=== PATIENT | female | born 1995 | race Caucasian/White ===

== ENCOUNTER → 2021-02-07 11:20 | Outpatient (CLI) | payer OTHER, SELFPAY ==
[2021-02-07 12:23] LABS: COVID19 -Nasal RAPID Negative (Negative)
== END ==
PROVIDERS: Visit Provider Nurse Practitioner
DX: Z01.812 Encounter for preprocedural laboratory examination (principal); Z20.822 Contact with and (suspected) exposure to COVID-19
CPT/HCPCS: 87635

== ENCOUNTER 2021-02-09 10:56 | Day surgery (SDC) | payer OTHER, SELFPAY ==
[2021-02-09] VITALS (11 sets, daily range): BP systolic 102–121; BP diastolic 52–80; PULSE 78–114; RESP 10–14; TEMP 36.3–38; O2SAT 99–100; BMI 24.9
[2021-02-09] MEDS: LACTATED RINGERS 1,000 ML 42 ML IV (11:25)
--- NOTE | 2021-02-09 11:46 | PM.PREOP ---
Pre-operative Note COVID-19 COVID-19 status: Negative Result date/Date tested (Pos, Neg/Pending): 02/07/21 Interval Note History & Physical reviewed/Exam performed by Physician: Yes Changes to H&P: No
[2021-02-09] MEDS: CEFAZOLIN 1 GM VIAL 2 GM IV (12:21)
--- NOTE | 2021-02-09 12:45 | SUR.OPER ---
Prone on spine table, head in foam head support, padded chest and pelvic supports, gel pad at knees, lower legs supported by pillows; nipples, genitalia and toes free of pressure, arms secured on foam padded arm boards at <90 degrees abduction. Tape over blanket at thigh secured to table.
[2021-02-09] MEDS: BUPIVACAINE 0.25% (PF) VIAL 30 ML INJ (12:51)
[2021-02-09] MEDS: EPINEPHrine 1 MG/ML 0.15 MG INJ (12:54)
--- NOTE | 2021-02-09 13:44 | P.OP_ITS ---
Operative Date/Time/Diagnoses Date of procedure: 02/09/21 Time of procedure: 12:00 Pre-op diagnosis: 1. L4-5, L5-S1 disc herniation 2. Lumbar radiculopathy Post-op diagnosis: same Procedure & Clinicians Procedure: 1. L5-S1 right microdiscectomy with laminotomy 2. L4-5 right microdiscectomy with laminectomy 3. Utilization of microsurgical technique and operating microscope Same procedure as scheduled: Yes Indications: Patient has been having chronic back pain and worsening lumbar radiculopathy. Patient failed multiple conservative management with worsening pain weakness and numbness in her lower extremity. Patient has been having difficulty performing activity of daily living. After discussing risks benefits of treatment options, patient elected proceed with surgery. Surgeon: Barbara Prakash [employer]inkling Truck Driver: Mike Raygoza Click Yes if Unassisted: No Anesthesia Type: General Operative Notes Closure Type: primary Specimen(s): none sent Estimated Blood Loss (mL): 10 Blood products transfused: none Procedure in detail: Patient was seen in the preoperative area. Risks and dereje efits of the surgery was discussed with the patient. Informed consent was obtained from the patient and placed in the chart. Surgical site was marked. Patient was taken to the operative room. General anesthesia was administered. Prophylactic antibiotic was given to the patient less than 30 min before the incision was made. Patient was placed into a prone position on the Nicola table. Patient's back was then prepped and draped in the sterile fashion. Time- out was performed at this time. Using AP and lateral C-arm imaging the interval between L4-5 L5-S1 was identified and marked on patient's back. A 1 inch incision 1 in from midline was made on the right side. The fascia was incised in line with skin incision. Globus MARS retractors was placed inside the incision and docked onto the L4 and L5 lamina. Using microsurgical technique and operating microscope, a L4-5 L5-S1 laminotomy was performed using a Kerrison rongeur. Liagamentum flavum was resected at the site of the laminotomy. The disc space at L4-5 L5-S1 was identified. Microdiscectomy was performed by incising the annulus with #11 blade. Microcurettes and pituitary was used to removed herniated disc fragments of disc from the epidural space at L4-5, L5-S1 level. Patient is central disc herniation at L5-S1 level was found to be chronic in nature with significant amount of adhesion to the adjacent soft tissue. Careful dissection was made to free up the disc fragment before microdiskectomy was performed and completed. Appropriate decompression was performed at both levels once the microdiskectomy was completed. After the microdiskectomy was completed, the area medial lateral superior and inferior to the area of the microdiskectomy was inspected and explored using a micro curette. No other impinging structure was identified. The wound was then irrigated with sterile normal saline. 40 mg Depo-Medrol was placed into the epidural space. The deep fascia was closed with 1-0 Vicryl. The subcutaneous tissue was closed with 2-0 Vicryl. The skin was closed with 4-0 Monocryl. Patient tolerated the procedure well. There were no complications. Patient was transferred recovery room in stable condition. Complications: none Post-operative Condition: stable Disposition: PACU Plan for aftercare: Discharge to home
--- NOTE | 2021-02-09 13:53 | DI.RAD.S_ITS ---
PROCEDURE: XR LUMBAR SPINE 2-3V INDICATIONS: L4-5, L5-S1 MICRODISCECTOMY TECHNIQUE: Four intraoperative fluoroscopic views of the lumbar spine were acquired. COMPARISON: None. FINDINGS: Lateral view demonstrates a surgical instrument directed towards the L4-5 disc level and L5-S1 disc levels to the right of midline. IMPRESSION: 1. Intraoperative fluoroscopy for L4-5 and L5-S1 micro discectomy. Dictated by: Luciana Calvillo M.D. on 02/09/2021 at 15:08 Approved by: Luciana Calvillo M.D. on 02/09/2021 at 15:09
[2021-02-09] MEDS: fentaNYL 100 MCG/2 ML INJ IV ×2 (14:09→14:23)
[2021-02-09] MEDS: OXYCODONE/ACETAMINOPHEN 5/325 TABLET 1 TAB PO ×2 (14:17→15:25)
[2021-02-09] MEDS: LORazepam 2 MG/ML INJ 0.25 MG IV (14:32)
[2021-02-09] MEDS: hydrOXYzine 50 MG/ML INJ 25 MG IM (14:47)
--- NOTE | 2021-02-09 15:37 | SUR.PHASEII ---
[id number] Patient resting quietly, facial grimace, pale, no moaning or crying. Brought to [facility], states that she feels like she is ready to go home. Discussed pain level and medication taking her stature into account. Assisted patient in moving and dressing. Determined that 2nd PO Rx would be helpful for transition from the car into her house ([address] home). Medicated. Moving slowly. Suggested positions of comfort at home. Pt appreciative of care.
--- NOTE | 2021-02-09 19:11 | SUR.PHASEII ---
Steffen patients partner called stating that the prescription was not at the [facility] as planned. This RN found the oxycodone prescription on the printer unsigned. Dr Cheung, administration intern for Dr Prakash called after Dr Prakash not available via cell phone. sent pain medication through e-scribe. Steffen called and updated regarding prescription now at the [facility].
== END 2021-02-09 15:32 | disposition home or self-care (01) ==
PROVIDERS: Referring Provider Physician Assistant Medical; Visit Provider Orthopaedic Surgery Orthopaedic Surgery of the Spine
PROC: (CPT 63030; principal; 2021-02-09 13:00)
DX: M51.16 Intervertebral disc disorders with radiculopathy, lumbar region (principal)
CPT/HCPCS: 63030; 63035; 72100; 76000; 82962; J0171; J0690; J1100; J2060; J2250; J2405; J2704; J3010; J3410